=== PATIENT | female | born 1995 | race Caucasian/White ===

== ENCOUNTER 2017-06-19 10:17 | Emergency (ER) | payer OTHER, SELFPAY ==
--- NOTE | 2017-06-19 12:16 | RAD ---
PORTABLE AP CHEST XRAY: DATE: 06/19/17. HISTORY: Chest pain and difficulty breathing. Cough. COMPARISON: None available. FINDINGS: Cardiac silhouette and pulmonary vasculature are within normal limits. The lungs are clear. The oss eous structures are intact. IMPRESSION: No acute cardiopulmonary process. POS: [facility]
--- NOTE | 2017-07-25 12:47 | EKG ---
Test Reason : Blood Pressure : / mmHG Vent. Rate : 073 BPM Atrial Rate : 073 BPM P-R Int : 168 ms QRS Dur : 086 ms QT Int : 372 ms P-R-T Axes : 028 042 015 degrees QTc Int : 409 ms Normal sinus rhythm with sinus arrhythmia Cannot rule out Anterior infarct , age undetermined Abnormal ECG No ST elevation/[place] Confirmed by TWAN SÁNCHEZ, SUSIE ([id number]), newspaper editor managing JAI CERNO ([id number]) on 07/25/2017 12:47:18 PM Referred By: Confirmed By:SUSIE TRENT MD
== END 2017-06-19 12:50 | disposition home or self-care (01) ==
LOC: ERS 10:17
DX: R09.1 Pleurisy (principal)
CPT/HCPCS: 71010; 93005

== ENCOUNTER 2018-05-10 02:21 | Emergency (ER) | payer SELFPAY ==
[2018-05-10 03:26] LABS: #Basophils 0.1 thou/uL (0.0-0.2); #Eosinphils 0.2 thou/uL (0.0-0.7); #Lymphocytes 3.6 thou/uL (1.20-3.40); #Monocytes 0.4 thou/uL (0.11-0.59); #Neutrophils 5.6 thou/uL (1.40-6.50); %Basophils 0.7 % (0.0-1.0); %Eosinophils 1.9 % (0.0-10.0); %Lymphocytes 36.2 % (21.0-51.0); %Monocytes 4.2 % (0.0-10.0); Hemoglobin 12.9 g/dL (12.0-16.0); Mean Corpuscular HGB CONC 33.6 g/dL (32.0-36.0); Mean Corpuscular Volume 86.4 fL (78.0-98.0); Mean Platelet Volume 7.3 fL (7.4-10.4); Platelet Count 368 thou/uL (130-400); RBC Distribution Width 11.8 % (11.5-14.5); Red Blood Cell (RBC) Count 4.46 mill/uL (4.20-5.40); White Blood Cell (WBC) Count 9.8 thou/uL (4.8-10.8)
[2018-05-10 03:34] LABS: INR-International Normal Ratio 0.9; Prothrombin Time 12.3 SEC (12.0-14.7)
[2018-05-10 03:38] LABS: BHCG - Serum Negative (NEGATIVE); Pregs Control Background? CLEAR/WHITE (CLR/WHITE); Pregs Control Bar Appear? YES (CONTROL BAR)
[2018-05-10] MEDS ORDERED: Ondansetron HCl/PF 4 MG/2 ML Vial ONE (03:42)
[2018-05-10] MEDS ORDERED: HYDROcodone/Acetaminophen 5/325 mg Tablet ONE (03:45)
[2018-05-10] MEDS ORDERED: Dicyclomine 20 MG TAB ONE (03:45)
[2018-05-10 03:50] LABS: ALT (SGPT) 27 U/L (8-55); AST (SGOT) 17 U/L (5-34); Alkaline Phosphatase 66 U/L (40-150); Anion Gap 12 mmol/L (10-20); BUN (Urea Nitrogen) 15 mg/dL (7.0-18.7); Bilirubin, Total 0.5 mg/dL (0.2-1.2); Calc. Creatinine Clearance 0 mL/min (70-130); Calcium 9.1 mg/dL (7.8-10.44); Carbon Dioxide 22 mmol/L (22-29); Chloride 108 mmol/L (98-107); Estimated GFR-MDRD Greater than 90; Globulin 2.9 g/dL (2.4-3.5); Glucose 101 mg/dL (70-105); Potassium 3.6 mmol/L (3.5-5.1); Protein, Total 6.9 g/dL (6.0-8.3); Sodium 138 mmol/L (136-145)
[2018-05-10] MEDS ORDERED: methylPREDNISolone Sod Succ/PF 125 MG/2 ML VIAL ONE (04:13)
[2018-05-10] MEDS ORDERED: diphenhydrAMINE 50 MG/ML VIAL ONE (04:13)
[2018-05-10] MEDS ORDERED: Famotidine/PF 20 mg/2ml Vial ONE (04:13)
[2018-05-10 04:49] LABS: Bilirubin Negative (Negative); Blood, Urine Small (Negative); Clarity CLEAR (Clear); Glucose, Urine (Dipstick) Negative (Negative); Leukocyte Negative (Negative); Nitrite Negative (Negative); Protein, Urine (Dipstick) Negative (Neg-Trace); Specific Gravity, Urine 1.015 (1.002-1.036); Urobilinogen 0.2 mg/dL (0.2-1.0); pH, Urine 7.5 (5.0-9.0)
[2018-05-10 04:52] LABS: Bacteria/HPF None Seen HPF (None Seen); Hyaline Casts/LPF 0-3 HYALINE CAST LPF (0-3 Hyaline); Squamous Epithelial 0-3 HPF (0-3); WBC/HPF 0-3 HPF (0-3)
[2018-05-10] MEDS ORDERED: Ketorolac Tromethamine 30 MG/ML VIAL ONE (07:24)
--- NOTE | 2018-05-10 10:34 | CT ---
PRELIMINARY REPORT/[facility]/EMERGENTY AFTER-HOURS PROCEDURE CT Abdomen and Pelvis With Intravenous Contrast CLINICAL HISTORY: 23 years old, female; Pain; Abdominal pain; Generalized; Patient HX: F23 presents to ed with C/O umbi lical pain that radiates to the right since 05/07/18, worsening since onset. Pt also reports lower ba ck pain. Associated with nausea, vomiting (7 episodes today), fever (measured 101), diarrhea, constipation, hematochezia. Pt reports that she went to [facility], had lab work and CT scan, was told that she has an inflamed appendix and to return to ed if the pain worsens. TECHNIQUE: Axial computed tomography images of the abdomen and pelvis with intravenous contrast. Coronal reformatted images were created and reviewed. COMPARISON: No relevant prior studies available. FINDINGS: The lung bases are clear. Prior cholecystectomy, no significant biliary tree dilation. Unremarkable appearance of the liver, spleen, kidneys, adrenal glands, and pancreas. No free air, ascites, or bowel distention. No retroperitoneal adenopathy. CT pelvis: The appendix is visualized and appears normal. There are no CT findings to strongly suggest diverticulitis or colitis. Negative CT does not entirely exclude colitis, so appropriate follow-up will be helpful. The right ovary appears enlarged and probably contains a 2.5-3.0 cm cyst. A physiologic cyst is likely in this age group, other etiologies not excluded. Ultrasound could further evaluate these ovarian findings if felt clinically indicated, and could also be used for appropriate follow-up. No significant cul-de-sac fluid. IMPRESSION: Normal appendix. Enlarged right ovary, probably containing a 2.5-3.0 cm cyst. No significant cul-de-sac fluid. No CT findings to strongly suggest diverticulitis or colitis, see above. Other findings discussed above. Thank you for allowing us to participate in the care of your patient. Dictated and Authenticated by: David Merlos MD 05/10/2018 6:19 AM Central Time ([place] & [place]) FINAL REPORT EMERGENT AFTER HOURS CT OF ABDOMEN AND PELVIS PERFORMED WITH INTRAVENOUS CONTRAST ENHANCEMENT: HISTORY: Abdominal pain radiates to the right. Diarrhea. FINDINGS: The lung bases are clear of any confluent infiltrative process. Some minimal ground-glass opacity is seen in the bases. The liver and spleen as well as pancreas regions appear unremarkable. The gallbladder has been remov ed. Right and left adrenal glands and right and left kidneys are normal in size, the right kidney being s lightly malrotated. There is no significant periaortic or mesenteric adenopathy. There is no obstru ction of either kidney. CT OF PELVIS PERFORMED WITH CONTRAST: The appendix is normal. The right ovary is somewhat low in position. It has what appears to be a pr ominent follicle or possibly a cyst. No free fluid is demonstrated. This could be better investigat ed with pelvis ultrasound. No evidence for diverticulitis. IMPRESSION: 1. Slightly enlarged right ovary probably related to a follicle or cyst. Evaluation with ultrasound may be helpful if indicated. 2. Normal appendix. 3. Postop cholecystectomy change. 4. This report is in agreement with the temporary report issued by [facility]. POS: [facility]
== END 2018-05-10 08:01 | disposition home or self-care (01) ==
LOC: ERS 02:21
DX: N83.201 Unspecified ovarian cyst, right side (principal); F17.210 Nicotine dependence, cigarettes, uncomplicated
CPT/HCPCS: 36415; 74177; 80053; 81003; 81015; 83605; 84703; 85025; 85610; 85730; 87086; 96374; 96375; J1200; J1885; J2405; J2930; S0028

== ENCOUNTER 2018-05-13 16:12 | Emergency (ER) | payer SELFPAY ==
[2018-05-13] MEDS ORDERED: diphenhydrAMINE 50 MG/ML VIAL ONE (16:31)
[2018-05-13 16:57] LABS: #Basophils 0.1 thou/uL (0.0-0.2); #Eosinphils 0.1 thou/uL (0.0-0.7); #Monocytes 0.5 thou/uL (0.11-0.59); #Neutrophils 6.3 thou/uL (1.40-6.50); %Basophils 0.6 % (0.0-1.0); %Eosinophils 1.3 % (0.0-10.0); %Lymphocytes 30.5 % (21.0-51.0); %Monocytes 4.6 % (0.0-10.0); Hemoglobin 13.2 g/dL (12.0-16.0); Mean Corpuscular HGB CONC 33.8 g/dL (32.0-36.0); Mean Corpuscular Hemoglobin 29.1 pg (27.0-31.0); Mean Corpuscular Volume 85.9 fL (78.0-98.0); Mean Platelet Volume 7.3 fL (7.4-10.4); Platelet Count 354 thou/uL (130-400); RBC Distribution Width 11.7 % (11.5-14.5); Red Blood Cell (RBC) Count 4.53 mill/uL (4.20-5.40); White Blood Cell (WBC) Count 9.9 thou/uL (4.8-10.8)
[2018-05-13 17:13] LABS: ALT (SGPT) 21 U/L (8-55); AST (SGOT) 12 U/L (5-34); Albumin 3.9 g/dL (3.5-5.0); Alkaline Phosphatase 67 U/L (40-150); Anion Gap 14 mmol/L (10-20); BUN (Urea Nitrogen) 15 mg/dL (7.0-18.7); Bilirubin, Total 0.8 mg/dL (0.2-1.2); Calc. Creatinine Clearance 0 mL/min (70-130); Calcium 9.1 mg/dL (7.8-10.44); Carbon Dioxide 23 mmol/L (22-29); Chloride 105 mmol/L (98-107); Estimated GFR-MDRD Greater than 90; Globulin 2.9 g/dL (2.4-3.5); Glucose 108 mg/dL (70-105); Lipase 31 U/L (8-78); Potassium 3.4 mmol/L (3.5-5.1); Protein, Total 6.8 g/dL (6.0-8.3); Sodium 139 mmol/L (136-145)
[2018-05-13 17:14] LABS: Bilirubin Negative (Negative); Blood, Urine Small (Negative); Clarity CLOUDY (Clear); Glucose, Urine (Dipstick) Negative (Negative); Leukocyte Small (Negative); Nitrite Negative (Negative); Protein, Urine (Dipstick) Negative (Neg-Trace); Specific Gravity, Urine 1.034 (1.002-1.036); Urobilinogen 0.2 mg/dL (0.2-1.0)
[2018-05-13 17:15] LABS: Bacteria/HPF Rare-Few HPF (None Seen); Hyaline Casts/LPF 4-6 HYALINE CAST LPF (0-3 Hyaline); Pathc Cast-AUWi Flag 1.16 (0-2.49)
[2018-05-13 17:17] LABS: Pregnancy Test - Urine (BHCG) Negative (Negative); Pregu Control Background? CLEAR/WHITE (CLR/WHITE); Pregu Control Bar Appear? YES (CONTROL BAR); Specific Gravity 1.034 (1.002-1.036)
[2018-05-13 17:29] LABS: RBC/HPF 0-3 HPF (0-3); WBC/HPF 0-3 HPF (0-3)
--- NOTE | 2018-05-13 17:44 | RAD ---
PA AND LATERAL CHEST: INDICATIONS: Chest pain. Shortness of breath. COMPARISON: Prior exam dated 06/19/2017 FINDINGS: The lungs are clear. The cardiomediastinal silhouette is normal. No acute osseous abnormality is ev ident. IMPRESSION: No acute cardiopulmonary abnormality. POS: [facility]
--- NOTE | 2018-05-13 17:47 | ULT ---
TRANSABDOMINAL AND TRANSVAGINAL PELVIC ULTRASOUND: INDICATIONS: History of right-sided pelvic pain and known ovarian cysts. TECHNIQUE: Ag-scale and color Doppler with vascular duplex and spectral analysis was performed. FINDINGS: The uterus measures 9.2 x 4.5 x 4.8 cm. There is an endometrial stripe, measuring 8 mm. The right ovary measures 5.6 x 5.5 x 3.8 cm. There is normal flow to the right ovary. There is a 4. 8 cm cyst within the right ovary. The left ovary is not seen. A small amount of free fluid is seen within the pelvis, adjacent to the right ovary. IMPRESSION: 1. Right ovarian follicular cyst. 2. Small amount of free fluid in the pelvis. 3. Nonvisualization of the left ovary due to limited visualization due to body habitus. POS: [facility]
[2018-05-15 22:41] LABS: Chlamydia by PCR Not Detected (NotDetected); GC by PCR Not Detected (NotDetected)
--- NOTE | 2018-05-19 13:25 | EKG ---
Test Reason : Blood Pressure : / mmHG Vent. Rate : 088 BPM Atrial Rate : 088 BPM P-R Int : 172 ms QRS Dur : 094 ms QT Int : 344 ms P-R-T Axes : 048 036 005 degrees QTc Int : 416 ms Normal sinus rhythm Normal ECG Confirmed by BLAYNE COBB ([id number]), newspaper photo editor JAI CERON ([id number]) on 05/19/2018 1:25:07 PM Referred By: Confirmed By:BLAYNE COBB
== END 2018-05-13 18:48 | disposition home or self-care (01) ==
LOC: ERS 16:12
DX: R21 Rash and other nonspecific skin eruption (principal); N83.201 Unspecified ovarian cyst, right side; T40.4X5A Adverse effect of other synthetic narcotics, initial encounter; F17.210 Nicotine dependence, cigarettes, uncomplicated; Z71.6 Tobacco abuse counseling; Z79.891 Long term (current) use of opiate analgesic
CPT/HCPCS: 71046; 76856; 80053; 81003; 81015; 81025; 83690; 85025; 87480; 87491; 87510; 87591; 87660; 93005; 96361; 96374; 99406; J1200

== ENCOUNTER 2018-10-08 22:34 | Emergency (ER) | payer SELFPAY ==
--- NOTE | 2018-10-08 23:41 | RAD ---
CHEST TWO VIEWS: History: Fever. Comparison: 05-13-18 FINDINGS: Lungs are clear. No pneumothorax or effusion. Cardiac silhouette and mediastinal contours are within normal limits. No acute osseous abnormality. IMPRESSION: No acute intrathoracic abnormality. POS: [facility]
== END 2018-10-09 00:07 | disposition home or self-care (01) ==
LOC: ERS 22:34
DX: J11.1 Influenza due to unidentified influenza virus with other respiratory manifestations (principal); F17.210 Nicotine dependence, cigarettes, uncomplicated
CPT/HCPCS: 71046; 87804

== ENCOUNTER 2018-12-27 17:16 | Emergency (ER) | payer SELFPAY ==
[2018-12-27] MEDS ORDERED: Ibuprofen 800 MG TAB ONE (18:20)
== END 2018-12-27 18:36 | disposition home or self-care (01) ==
LOC: ERS 17:16
DX: S16.1XXA Strain of muscle, fascia and tendon at neck level, initial encounter (principal); F17.210 Nicotine dependence, cigarettes, uncomplicated; V43.52XA Car driver injured in collision with other type car in traffic accident, initial encounter
CPT/HCPCS: 99283

== ENCOUNTER 2019-12-30 19:02 | Emergency (ER) | payer SELFPAY ==
[2019-12-30 20:02] LABS: Bacteria/HPF None Seen HPF (None Seen); Bilirubin Negative (Negative); Blood, Urine 1+ (Negative); Clarity Clear (Clear); Glucose, Urine (Dipstick) Normal (Negative); Leukocyte Negative Leu/uL (Negative); Nitrite Negative (Negative); Protein, Urine (Dipstick) Negative (Neg-Trace); RBC/HPF 0-3 HPF (0-3); Squamous Epithelial 0-3 HPF (0-3); Urobilinogen Normal mg/dL (Less than 2); WBC/HPF 0-3 HPF (0-3)
[2019-12-30 20:15] LABS: #Basophils 0.1 thou/uL (0.0-0.2); #Eosinphils 0.2 thou/uL (0.0-0.7); #Lymphocytes 2.9 thou/uL (1.20-3.40); #Monocytes 0.4 thou/uL (0.11-0.59); #Neutrophils 5.3 thou/uL (1.40-6.50); %Basophils 0.8 % (0.0-1.0); %Eosinophils 1.7 % (0.0-10.0); %Lymphocytes 33.2 % (21.0-51.0); %Monocytes 4.5 % (0.0-10.0); %Neutrophils 59.8 % (42.0-75.0); Mean Corpuscular HGB CONC 34.3 g/dL (32.0-36.0); Mean Corpuscular Hemoglobin 30.4 pg (27.0-31.0); Mean Corpuscular Volume 88.7 fL (78.0-98.0); Mean Platelet Volume 7.8 fL (7.4-10.4); Platelet Count 325 thou/uL (130-400); RBC Distribution Width 11.7 % (11.5-14.5); Red Blood Cell (RBC) Count 4.59 mill/uL (4.20-5.40); White Blood Cell (WBC) Count 8.8 thou/uL (4.8-10.8)
[2019-12-30 20:26] LABS: BHCG - Serum Negative (NEGATIVE); Pregs Control Background? CLEAR/WHITE (CLR/WHITE); Pregs Control Bar Appear? YES (CONTROL BAR)
== END 2019-12-30 21:08 | disposition home or self-care (01) ==
LOC: ERS 19:02
DX: N93.8 Other specified abnormal uterine and vaginal bleeding (principal); F17.210 Nicotine dependence, cigarettes, uncomplicated
CPT/HCPCS: 36415; 81003; 81015; 84703; 85025; 86850; 86900; 86901; 99284

== ENCOUNTER 2020-06-23 11:56 | Emergency (ER) | payer SELFPAY ==
[2020-06-23 20:13] LABS: SARS-CoV-2 MS2 Positive; SARS-CoV-2 N Gene Negative; SARS-CoV-2 S Gene Negative; SARS-CoV-2 by NAA Not Detected (NotDetected); SARS-CoV-2 orf1ab Negative
== END 2020-06-23 13:14 | disposition home or self-care (01) ==
LOC: ERS 11:56
DX: R05 Cough (principal); R50.9 Fever, unspecified; Z20.828 Contact with and (suspected) exposure to other viral communicable diseases; F17.210 Nicotine dependence, cigarettes, uncomplicated
CPT/HCPCS: 87635; 99283; U0003

== ENCOUNTER 2021-03-01 15:09 | Emergency (ER) | payer SELFPAY ==
[2021-03-01] MEDS ORDERED: Metoclopramide HCl 10 MG/2 ML VIAL ONE (16:30)
[2021-03-02 11:36] LABS: SARS-CoV-2 PCR by NAA Not Detected (NotDetected)
== END 2021-03-01 16:37 | disposition home or self-care (01) ==
LOC: ERS 15:09
DX: R05 Cough (principal); R50.9 Fever, unspecified; J02.9 Acute pharyngitis, unspecified; Z20.822 Contact with and (suspected) exposure to COVID-19; F17.210 Nicotine dependence, cigarettes, uncomplicated
CPT/HCPCS: 96372; 99283; J2765; U0003; U0005

== ENCOUNTER 2021-11-14 09:24 | Emergency (ER) | payer SELFPAY ==
[2021-11-14] MEDS ORDERED: methylPREDNISolone Sod Succ/PF 125 MG/2 ML VIAL ONE (10:43)
[2021-11-14] MEDS ORDERED: Albuterol 200 PUFF (6.7GM INHALER) ONE (10:47)
[2021-11-14 10:50] LABS: #Basophils 0.1 thou/uL (0.0-0.2); #Eosinphils 0.4 thou/uL (0.0-0.7); #Monocytes 0.4 thou/uL (0.11-0.59); %Basophils 1.2 % (0.0-1.0); %Eosinophils 5.6 % (0.0-10.0); %Lymphocytes 28.4 % (21.0-51.0); %Monocytes 6.2 % (0.0-10.0); %Neutrophils 58.7 % (42.0-75.0); Mean Corpuscular HGB CONC 32.3 g/dL (32.0-36.0); Mean Corpuscular Volume 92.8 fL (78.0-98.0); Mean Platelet Volume 7.7 fL (7.4-10.4); Platelet Count 317 thou/uL (130-400); RBC Distribution Width 11.5 % (11.5-14.5); Red Blood Cell (RBC) Count 5.65 mill/uL (4.20-5.40); White Blood Cell (WBC) Count 6.9 thou/uL (4.8-10.8)
[2021-11-14 10:54] LABS: BHCG - Serum Negative (NEGATIVE); Pregs Control Background? CLEAR/WHITE (CLR/WHITE); Pregs Control Bar Appear? YES (CONTROL BAR)
[2021-11-14 11:10] LABS: ALT (SGPT) 21 U/L (8-55); AST (SGOT) 22 U/L (5-34); Albumin 4.7 g/dL (3.5-5.0); Alkaline Phosphatase 85 U/L (40-110); Anion Gap 14 mmol/L (10-20); BUN (Urea Nitrogen) 11 mg/dL (7.0-18.7); Bilirubin, Total 1.7 mg/dL (0.2-1.2); Calc. Creatinine Clearance 0 mL/min (70-130); Calcium 9.6 mg/dL (7.8-10.44); Carbon Dioxide 18 mmol/L (22-29); Chloride 108 mmol/L (98-107); Globulin 3.7 g/dL (2.4-3.5); Glucose 82 mg/dL (70-105); Protein, Total 8.4 g/dL (6.0-8.3); Sodium 136 mmol/L (136-145)
[2021-11-14 12:21] LABS: SARS-CoV-2 NAA Rapid Test Not Detected (NotDetected)
[2021-11-14] MEDS ORDERED: methylPREDNISolone Sod Succ 40 MG VIAL ONE ×2 (13:56→13:59)
[2021-11-14] MEDS ORDERED: Famotidine/PF 20 mg/2ml Vial ONE (13:56)
[2021-11-14] MEDS ORDERED: diphenhydrAMINE 50 MG/ML VIAL ONE (13:56)
[2021-11-14] MEDS ORDERED: Iopamidol-370 76% 500 ML 1 ML ONE (14:41)
== END 2021-11-14 16:22 | disposition home or self-care (01) ==
LOC: ERS 09:24
DX: J98.01 Acute bronchospasm (principal); J18.9 Pneumonia, unspecified organism; Z20.822 Contact with and (suspected) exposure to COVID-19; F17.210 Nicotine dependence, cigarettes, uncomplicated
CPT/HCPCS: 36415; 71045; 71275; 80053; 83605; 84703; 85025; 85379; 93005; 96374; 96375; 96376; J1200; J2920; J2930; Q9967; S0028

== ENCOUNTER 2023-07-27 14:19 | Emergency (ER) | payer SELFPAY ==
[2023-07-27 15:47] LABS: #Basophils 0.1 thou/uL (0.0-0.2); #Eosinphils 0.2 thou/uL (0.0-0.7); #Monocytes 0.4 thou/uL (0.11-0.59); %Basophils 0.6 % (0.0-1.0); %Eosinophils 2.8 % (0.0-10.0); %Lymphocytes 39.7 % (21.0-51.0); %Monocytes 5.4 % (0.0-10.0); %Neutrophils 51.1 % (42.0-75.0); Hematocrit 43.4 % (36.0-47.0); Hemoglobin 14.2 g/dL (12.0-16.0); Mean Corpuscular HGB CONC 32.7 g/dL (32.0-36.0); Mean Corpuscular Hemoglobin 30.1 pg (27.0-31.0); Mean Corpuscular Volume 92.1 fl (78.0-98.0); Platelet Count 322 10x3/uL (130-400); RBC Distribution Width 12.4 % (11.5-14.5); Red Blood Cell (RBC) Count 4.71 mill/uL (4.20-5.40); White Blood Cell (WBC) Count 7.8 10x3/uL (4.8-10.8)
[2023-07-27 15:52] LABS: BHCG - Serum Negative (NEGATIVE); Pregs Control Background? CLEAR/WHITE (CLR/WHITE); Pregs Control Bar Appear? YES (CONTROL BAR)
[2023-07-27 16:10] LABS: Troponin I Less than 0.010 ng/mL (< 0.028)
[2023-07-27 16:11] LABS: ALT (SGPT) 12 U/L (8-55); AST (SGOT) 14 U/L (5-34); Alkaline Phosphatase 54 U/L (40-110); Anion Gap 10 mmol/L (10-20); BUN (Urea Nitrogen) 13 mg/dL (7.0-18.7); Bilirubin, Total 0.4 mg/dL (0.2-1.2); Calc. Creatinine Clearance 0 mL/min (70-130); Calcium 8.8 mg/dL (7.8-10.44); Carbon Dioxide 25 mmol/L (22-29); Chloride 108 mmol/L (98-107); Estimated GFR 119; Globulin 2.6 g/dL (2.4-3.5); Glucose 80 mg/dL (70-105); Lipase 54 U/L (8-78); Magnesium 1.9 mg/dL (1.6-2.6); Potassium 3.8 mmol/L (3.5-5.1); Protein, Total 6.6 g/dL (6.0-8.3); Sodium 139 mmol/L (136-145)
[2023-07-27] MEDS ORDERED: Ondansetron ODT 4 MG TAB ONE (16:43)
[2023-07-27] MEDS ORDERED: Famotidine 20 MG TAB ONE (16:43)
== END 2023-07-27 17:04 | disposition home or self-care (01) ==
LOC: ERS 14:19
DX: R55 Syncope and collapse (principal); S09.90XA Unspecified injury of head, initial encounter; R10.13 Epigastric pain; F17.210 Nicotine dependence, cigarettes, uncomplicated; X58.XXXA Exposure to other specified factors, initial encounter
CPT/HCPCS: 36415; 70450; 71045; 80053; 83690; 83735; 84484; 84703; 85025; 93005; 94760; Q0162

== ENCOUNTER 2024-04-30 09:31 | Emergency (ER) | payer OTHER, SELFPAY ==
[2024-04-30 10:25] LABS: Bacteria/HPF None Seen HPF (None Seen); Bilirubin Negative (Negative); Blood, Urine Negative (Negative); CAUTI Indications for Culture Dysuria,urgency,freq; Clarity Clear (Clear); Glucose, Urine (Dipstick) Normal (Negative); Ketone, Urine Negative (Negative); Leukocyte Negative Leu/uL (Negative); Nitrite Negative (Negative); Protein, Urine (Dipstick) Negative (Neg-Trace); RBC/HPF 0-3 HPF (0-3); Squamous Epithelial 0-3 HPF (0-3); Urobilinogen Normal mg/dL (Less than 2); WBC/HPF 0-3 HPF (0-3); pH, Urine 5.5 (5.0-9.0)
[2024-04-30 10:28] LABS: Pregnancy Test - Urine (BHCG) Negative (Negative); Pregu Control Background? CLEAR/WHITE (CLR/WHITE); Pregu Control Bar Appear? YES (CONTROL BAR); Urine Culture Reflex No No
== END 2024-04-30 12:45 | disposition left against medical advice (07) ==
LOC: ERS 09:31
DX: Z53.21 Procedure and treatment not carried out due to patient leaving prior to being seen by health care provider (principal)
CPT/HCPCS: 81001; 81025

== ENCOUNTER 2025-06-27 08:33 | Emergency (ER) | payer OTHER ==
[2025-06-27] MEDS ORDERED: Acetaminophen 500 MG TAB ONE (08:46)
== END 2025-06-27 10:24 | disposition home or self-care (01) ==
LOC: ERS 08:33
DX: S93.402A Sprain of unspecified ligament of left ankle, initial encounter (principal); F17.210 Nicotine dependence, cigarettes, uncomplicated; W10.9XXA Fall (on) (from) unspecified stairs and steps, initial encounter
CPT/HCPCS: 90471; 90715